=== PATIENT | male | born 1985 | race Caucasian/White ===

== ENCOUNTER 2016-10-03 15:33 | Inpatient (IN) ==
[2016-10-03 15:59] LABS: Bilirubin,Urine Negative (Negative); Blood,Urine Small (Negative); Clarity,Urine Clear (Clear); Color,Urine Yellow (Yellow); Glucose,Urine (UA) Normal (Normal); Ketones,Urine Trace mg/dL (Negative); Leukocyte Esterase,Urine Negative (Negative); Nitrite,Urine Negative (Negative); Protein,Urine Negative (Neg-Trace); Specific Gravity,Urine >= 1.030 (1.010-1.025)
[2016-10-03 16:04] LABS: Basophils # 0.1 K/mcL (0.0-0.2); Basophils % 1.1 %; Eosinophils # 0.2 K/mcL (0.0-0.6); Eosinophils % 3.9 %; Hemoglobin 14.1 g/dL (12.9-16.9); Immature Granulocytes % 0.6 % (0-4); Lymphocytes # 1.6 K/mcL (0.6-4.6); Lymphocytes % 28.7 %; Mean Corpuscular HGB Conc 33.6 g/dL (31.6-35.5); Mean Corpuscular Hemoglobin 29.8 pg (28.0-33.3); Mean Corpuscular Volume 88.8 fL (83.0-100.0); Mean Platelet Volume 9.5 fL (9.4-12.4); Monocytes # 0.4 K/mcL (0.0-1.3); Monocytes % 6.8 %; Neutrophils # 3.2 K/mcL (1.6-8.9); Platelet Count 345 K/mcL (140-400); Red Blood Count 4.73 M/mcL (4.19-5.50); Red Cell Distribution Width 12.9 % (11.5-14.5); Segmented Neutrophils % 58.9 %
[2016-10-03 16:07] LABS: Amphetamine Screen,Urine Negative ng/mL (Cutoff=1000); Barbiturate Screen,Urine Negative ng/mL (Cutoff=200); Benzodiazepines Screen,Urine Positive ng/mL (Cutoff=200); Cannabinoid Screen,Urine Positive ng/mL (Cutoff = 50); Cocaine Screen,Urine Negative ng/mL (Cutoff= 300); Opiate Screen,Urine Negative ng/mL (Cutoff=300); Phencyclidine Screen,Urine Negative ng/mL (Cutoff=25)
[2016-10-03 16:08] LABS: Mucus,Urine Few (Few); RBC,Urine 0-3 per hpf (0-3); WBC,Urine 0-3 per hpf (0-3)
[2016-10-03 16:14] LABS: BUN/Creatinine Ratio 11 (6-26); Blood Urea Nitrogen 10 mg/dL (8-26); Calcium 8.9 mg/dL (8.6-10.8); Carbon Dioxide 26 mEq/L (19-29); Chloride 106 mEq/L (98-109); Glucose 107 mg/dL (70-99); Osmolality,Calculated 290 (280-300); Potassium 4.2 mEq/L (3.5-4.5); Sodium 140 mEq/L (136-145); eGFR For African Americans > 60 (> 60); eGFR For Non-African Americans > 60 (> 60)
--- NOTE | 2016-10-03 16:16 | Emergency Department Note ---
Disposition Clinical Impression: Suicidal ideation, Homicidal ideation Disposition: Admitted As Inpatient Condition: Good Time of Disposition: 18:53 General Adult HPI - General Chief complaint: ED Psychiatric Symptoms Stated complaint: SI Time Seen by Provider: 10/03/16 15:44 Source: patient Limitations: no limitations Nursing Notes Reviewed: Yes Vital Signs Reviewed: Yes - History of Present Illness HPI Narrative: Male patient complaining of suicidal ideation. As well as homicidal ideation. He states that he will get his drug dealer to shoot him by attempting to rodrick him. He also states he would like to kill some radha that he is not aware of his name. Does have a history of schizophrenia and bipolar. He was on medication for this but has not taken it for over 1 year. He does use methamphetamine. Pain Scale: 0 - Related Data Home Medications Medication Instructions Recorded Confirmed No Known Home Drugs 10/03/16 10/03/16 Allergies Allergy/AdvReac Type Severity Reaction Status Date / Time guaifenesin [From Robitussin] Allergy See Verified 10/03/16 15:40 Comments Review of Systems: Patient denies any fevers or chills. He denies any visual or auditory hallucinations. He does report suicidal and homicidal ideations. He denies any shortness of breath or chest pain. He does report a productive cough. He also reports pain to his right forearm and he thinks he broke a needle off in his right arm. He denies any nausea vomiting or diarrhea. He denies any abdominal pain. He denies any urinary symptoms. All systems ED: reviewed and negative except as stated. Past Medical History - Past Medical History Medical history: Reports: other - Social History Smoking Status: Current every day smoker Alcohol use: Reports: heavy, recent Drug use: Reports: opiates, marijuana, methamphetamine, IVDU Physical Exam - General Limitations: no limitations General appearance: alert, in no apparent distress - Head Head exam: atraumatic, normocephalic, normal inspection - Eye Eye exam: Present: normal appearance, PERRL, EOMI. Absent: scleral icterus - ENT ENT exam: normal exam, normal oropharynx, mucous membranes moist - Neck Neck exam: Present: normal inspection, full ROM, trachea midline. Absent: tenderness, meningismus, lymphadenopathy - Chest Chest inspection: Present: normal inspection, symmetric chest wall rise. Absent : tenderness, rash - Respiratory Respiratory exam: Present: normal lung sounds bilaterally. Absent: respiratory distress, wheezes - Cardiovascular Cardiovascular exam: Present: regular rate, normal rhythm, normal heart sounds - Abdominal Exam Abdominal exam: Present: soft, Non-Tender, normal bowel sounds. Absent: tenderness, distention, guarding, rebound, rigidity - Extremities Exam Extremities exam: Present: normal inspection, full ROM, tenderness (To palpation of medial right forearm. He states he thinks he broke off a needle in this arm. There is no erythema is not warm. There is a hard spot directly under the skin.), normal capillary refill. Absent: pedal edema - Back Exam Back exam: Present: normal inspection, full ROM. Absent: tenderness, CVA tenderness (R), CVA tenderness (L) - Neurological Exam Neurological exam: Present: alert, oriented X3 - Psychiatric Psychiatric exam: Present: normal affect, normal mood - Skin Skin exam: Present: warm, dry, intact, normal color. Absent: rash, cyanosis, diaphoresis, erythema Course Course Narrative: The patient presented to the emergency department with suicidal and homicidal ideations. He stated he does have a plan for suicide that he is going to assist drug dealers house and attempted to rodrick him in hopes that he shoots him. He also has homicidal attempts against a male that he does not know his name. He states he does have a history of schizophrenia as well as bipolar but has not been on any medication in over a year. He has been using methamphetamine within the past 4 days. He states that he thinks that he may have broken a needle off in his right forearm approximately 4 days ago. States he normally shoots up in his neck but he missed the vein so he started in his arm. He is also complaining of a cough with productive sputum of dark color. Lung sounds are clear heart sounds are normal abdomen is soft and nontender. There is an area that is slightly hardened over his right before meals however there is no erythema or warmth. We will get a chest x-ray as well as a x-ray of his right forearm and do basic lab workup. We will have the patient talked to 1A. He is currently pink slipped. - Reevaluation(s) Reevaluation #1: 1A is requesting admission. We placed the orders. Time: 18:52 Vital Signs Temperature 98.3 F 10/03/16 15:38 Pulse Rate 77 10/03/16 15:38 Respiratory Rate 18 10/03/16 15:38 Blood Pressure 123/76 10/03/16 15:38 O2 Sat by Pulse Oximetry 97 10/03/16 15:38 Temperature 98.4 F 10/03/16 18:39 Pulse Rate 66 10/03/16 18:34 Respiratory Rate 18 10/03/16 18:39 Blood Pressure 109/66 10/03/16 18:39 O2 Sat by Pulse Oximetry 97 10/03/16 18:34 Oxygen Delivery Oxygen Delivery Room Air Medical Decision Making - Medical Records Medical records reviewed: Yes I reviewed the patient's medical records. - Lab Data Lab results reviewed: Yes I reviewed the patient's lab results. Result diagrams: 10/03/16 15:54 10/03/16 15:54 Lab Results 10/03/16 10/03/16 10/03/16 Range/Units 15:48 15:48 15:54 WBC 5.4 (4.3-11.1) K/mcL RBC 4.73 (4.19-5.50) M/mcL Hgb 14.1 (12.9-16.9) g/dL Hct 42.0 (37.5-50.1) % MCV 88.8 (83.0-100.0) fL MCH 29.8 (28.0-33.3) pg MCHC 33.6 (31.6-35.5) g/dL RDW 12.9 (11.5-14.5) % Plt Count 345 (140-400) K/mcL MPV 9.5 (9.4-12.4) fL Immature Gran % 0.6 (0-4) % Seg Neutrophils % 58.9 % Lymphocytes % 28.7 % Monocytes % 6.8 % Eosinophils % 3.9 % Basophils % 1.1 % Neutrophils # 3.2 (1.6-8.9) K/mcL Lymphocytes # 1.6 (0.6-4.6) K/mcL Monocytes # 0.4 (0.0-1.3) K/mcL Eosinophils # 0.2 (0.0-0.6) K/mcL Basophils # 0.1 (0.0-0.2) K/mcL Sodium (136-145) mEq/L Potassium (3.5-4.5) mEq/L Chloride (98-109) mEq/L Carbon Dioxide (19-29) mEq/L BUN (8-26) mg/dL Creatinine (0.72-1.25) mg/dL Est GFR ( Amer) (> 60) Est GFR (Non-Af Amer) (> 60) BUN/Creatinine Ratio (6-26) Glucose (70-99) mg/dL Calculated Osmolality (280-300) Calcium (8.6-10.8) mg/dL Urine Color Yellow (Yellow) Urine Clarity Clear (Clear) Urine pH 6.0 (5.0-8.0) pH Units Ur Specific [place] >= 1.030 H (1.010-1.025) Urine Protein Negative (Neg-Trace) mg/dL Urine Glucose (UA) Normal (Normal) mg/dL Urine Ketones Trace H (Negative) mg/dL Urine Blood Small H (Negative) Urine Nitrite Negative (Negative) Urine Bilirubin Negative (Negative) Urine Urobilinogen 2.0 H (Normal) mg/dL Ur Leukocyte Esterase Negative (Negative) Urine Microscopic RBC 0-3 (0-3) per hpf Urine Microscopic WBC 0-3 (0-3) per hpf Urine Mucus Few (Few) Salicylates (15-30) mg/dL Urine Opiates Screen Negative (Ctpein=893) ng/mL Acetaminophen (10-30) mcg/mL Ur Barbiturates Screen Negative (Ocfkcc=469) ng/mL Ur Phencyclidine Scrn Negative (Cutoff=25) ng/mL Ur Amphetamines Screen Negative (Eqnkgm=5436) ng/mL U Benzodiazepines Scrn Positive H (Xzfsso=213) ng/mL Urine Cocaine Screen Negative (Cutoff= 300) ng/mL U Marijuana (THC) Screen Positive H (Cutoff = 50) ng/mL Ethyl Alcohol (0-10) mg/dL 10/03/16 Range/Units 15:54 WBC (4.3-11.1) K/mcL RBC (4.19-5.50) M/mcL Hgb (12.9-16.9) g/dL Hct (37.5-50.1) % MCV (83.0-100.0) fL MCH (28.0-33.3) pg MCHC (31.6-35.5) g/dL RDW (11.5-14.5) % Plt Count (140-400) K/mcL MPV (9.4-12.4) fL Immature Gran % (0-4) % Seg Neutrophils % % Lymphocytes % % Monocytes % % Eosinophils % % Basophils % % Neutrophils # (1.6-8.9) K/mcL Lymphocytes # (0.6-4.6) K/mcL Monocytes # (0.0-1.3) K/mcL Eosinophils # (0.0-0.6) K/mcL Basophils # (0.0-0.2) K/mcL Sodium 140 (136-145) mEq/L Potassium 4.2 (3.5-4.5) mEq/L Chloride 106 (98-109) mEq/L Carbon Dioxide 26 (19-29) mEq/L BUN 10 (8-26) mg/dL Creatinine 0.88 (0.72-1.25) mg/dL Est GFR ( Amer) > 60 (> 60) Est GFR (Non-Af Amer) > 60 (> 60) BUN/Creatinine Ratio 11 (6-26) Glucose 107 H (70-99) mg/dL Calculated Osmolality 290 (280-300) Calcium 8.9 (8.6-10.8) mg/dL Urine Color (Yellow) Urine Clarity (Clear) Urine pH (5.0-8.0) pH Units Ur Specific [place] (1.010-1.025) Urine Protein (Neg-Trace) mg/dL Urine Glucose (UA) (Normal) mg/dL Urine Ketones (Negative) mg/dL Urine Blood (Negative) Urine Nitrite (Negative) Urine Bilirubin (Negative) Urine Urobilinogen (Normal) mg/dL Ur Leukocyte Esterase (Negative) Urine Microscopic RBC (0-3) per hpf Urine Microscopic WBC (0-3) per hpf Urine Mucus (Few) Salicylates < 5.0 L (15-30) mg/dL Urine Opiates Screen (Izcwbf=910) ng/mL Acetaminophen < 1.0 L (10-30) mcg/mL Ur Barbiturates Screen (Hsaddb=479) ng/mL Ur Phencyclidine Scrn (Cutoff=25) ng/mL Ur Amphetamines Screen (Nbtaal=0909) ng/mL U Benzodiazepines Scrn (Pfywzx=665) ng/mL Urine Cocaine Screen (Cutoff= 300) ng/mL U Marijuana (THC) Screen (Cutoff = 50) ng/mL Ethyl Alcohol < 10 (0-10) mg/dL - Radiology Data Radiology results reviewed: Yes I reviewed the patient's radiology results. Chest X-Ray 10/03/16 16:21 IMPRESSION: No acute cardiopulmonary abnormality. D/ / Alfredo Tiwari MD / Alfredo Tiwari MD Interpreting Provider: Alfredo Tiwari MD Forearm X-Ray 10/03/16 16:21 IMPRESSION: No acute osseous abnormality. No radiopaque foreign body. D/ / Rl Michel MD / Rl Michel MD Interpreting Provider: Rl Michel MD Attestation Statement - Attestation Attestation: I, Popeye Goyal, examined this patient and my medical decision-making was reviewed with the IT RECRUITER/PA/Advanced Practice Nurse/Resident Physician. I agree with the documented findings, disposition and treatment plan as described except to the extent set forth below. 31-year-old male present in the emergency department for suicidal ideation. Patient states his plan to hurt himself was to steal from his drug dealer in order to be shot. Patient has a history of bipolar disorder and schizophrenia of which he is not taking his medications. Patient will be medically cleared and evaluated by behavioral health. Patient will likely be admitted for further psychiatric evaluation.
[2016-10-03 16:50] LABS: Acetaminophen < 1.0 mcg/mL (10-30); Ethanol < 10 mg/dL (0-10); Salicylate < 5.0 mg/dL (15-30)
[2016-10-03] MEDS ORDERED: *HR* LORazepam 1 MG TABLET PO PRN (18:58)
[2016-10-03] MEDS ORDERED: Haloperidol Lactate 5 MG/ML VIAL IM PRN (18:58)
[2016-10-03] MEDS ORDERED: Ibuprofen 400 MG TABLET PO PRN (18:58)
[2016-10-03] MEDS ORDERED: hydrOXYzine pamoate 25 MG CAPSULE PO PRN (18:58)
[2016-10-03] MEDS ORDERED: Mag Hydrox/Al Hydrox/Simeth 30 ML UDC PO PRN (18:58)
[2016-10-03] MEDS ORDERED: *HR* LORazepam 2 MG/ML VIAL IM PRN (18:58)
[2016-10-03] MEDS ORDERED: Acetaminophen 325 MG TABLET PO PRN (18:58)
[2016-10-03] MEDS ORDERED: MOM Conc 10 ML UD.LIQ PO PRN (18:58)
[2016-10-03] MEDS ORDERED: traZODone 50 MG TABLET PO PRN (18:58)
--- NOTE | 2016-10-04 10:51 | Psychiatry History & Physical ---
Date of Encounter: 10/04/16 Time of Encounter: 10:30 History of Present Illness Patient Stated Chief Complaint: Suicidal and homicidal Medicare Admission Attestation: For traditional Medicare patients the provided hospital inpatient services are reasonable and necessary and in the case of services not specified as inpatient -only under 42 CFR 419.22 (n), that they are appropriately provided as inpatient services in accordance 42 CFR 412.3. For Critical Access Hospital the patient may reasonably be expected to be discharged or transferred to a hospital within 96 hours after admission to the Critical Access Hospital. Admitted From: Emergency Dept History of Present Illness: Mr. Zamudio is a 31 year old male admitted to the emergency department for suicidal or homicidal ideation. Patient reported that he has been treated in the past for bipolar disorder with medication and he was doing well on this medication. He started using drugs about a year ago and did not take any medication or follow any appointments, is using meth, heroin, THC and alcohol. Patient told me that she is scheduled to start drug rehabilitation program on Friday and . She did not feel safe and came to the hospital to get started on his medication. Nursing staff would be contacting his pharmacy to verify his medication prescribed in the past. Patient had previous psychiatric hospitalization at [facility] and [facility]. UDS was positive for THC and benzodiazepine. 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 Past Med Surg Social Fam HX - Past Medical History Medical history: other - Past Psychiatric History Psychiatric history: Reports: bipolar, depression, previous psychiatric hospitalization - Social History Smoking Status: Current every day smoker Smokeless Tobacco Status: Yes Alcohol use: heavy, recent Drug use: opiates, marijuana, methamphetamine, IVDU Medications & Allergies No Known Home Drugs 10/03/16 [History] Allergies guaifenesin [From Robitussin] Allergy (Verified 10/03/16 15:40) See Comments Review of Systems Psychiatric: Reports: suicidal ideation, homicidal ideation Mental Status Exam Patient orientation: Yes Person, Yes Time, Yes Place Level of alertness: Alert Patient appearance: Appropriate, Unkempt, Average Behavior: calm, cooperative, anxious Psychomotor activity: Normal Eye contact: Maintains Eye Contact Mood description: Anxious, Labile, Irritable Affect description: congruent with mood, labile, dysphoric, anxious Speech pattern: Normal rate, Normal rhythm, Normal tone Speech volume: Normal Thought process: Linear, Goal Oriented Thought content: No Suicidal ideation, No Homicidal ideation, No Overt delusions Perceptual disturbances: No Auditory hallucinations, No Visual hallucinations Attention span: Capable of Focused Attention Memory description: Grossly Intact Patient reliability: Questionable Historian Intelligence estimate: Average Judgment: Limited Insight: Partial Results - Vital Signs Vital signs: Temp Pulse Resp BP Pulse Ox 97.6 F 52 16 102/66 97 10/04/16 09:00 10/04/16 09:00 10/04/16 09:00 10/04/16 09:00 10/03/16 18:34 - Labs Labs: Laboratory Last Values WBC 5.4 K/mcL (4.3-11.1) 10/03/16 15:54 RBC 4.73 M/mcL (4.19-5.50) 10/03/16 15:54 Hgb 14.1 g/dL (12.9-16.9) 10/03/16 15:54 Hct 42.0 % (37.5-50.1) 10/03/16 15:54 MCV 88.8 fL (83.0-100.0) 10/03/16 15:54 MCH 29.8 pg (28.0-33.3) 10/03/16 15:54 MCHC 33.6 g/dL (31.6-35.5) 10/03/16 15:54 RDW 12.9 % (11.5-14.5) 10/03/16 15:54 Plt Count 345 K/mcL (140-400) 10/03/16 15:54 MPV 9.5 fL (9.4-12.4) 10/03/16 15:54 Immature Gran % 0.6 % (0-4) 10/03/16 15:54 Seg Neutrophils % 58.9 % 10/03/16 15:54 Lymphocytes % 28.7 % 10/03/16 15:54 Monocytes % 6.8 % 10/03/16 15:54 Eosinophils % 3.9 % 10/03/16 15:54 Basophils % 1.1 % 10/03/16 15:54 Neutrophils # 3.2 K/mcL (1.6-8.9) 10/03/16 15:54 Lymphocytes # 1.6 K/mcL (0.6-4.6) 10/03/16 15:54 Monocytes # 0.4 K/mcL (0.0-1.3) 10/03/16 15:54 Eosinophils # 0.2 K/mcL (0.0-0.6) 10/03/16 15:54 Basophils # 0.1 K/mcL (0.0-0.2) 10/03/16 15:54 Sodium 140 mEq/L (136-145) 10/03/16 15:54 Potassium 4.2 mEq/L (3.5-4.5) 10/03/16 15:54 Chloride 106 mEq/L (98-109) 10/03/16 15:54 Carbon Dioxide 26 mEq/L (19-29) 10/03/16 15:54 BUN 10 mg/dL (8-26) 10/03/16 15:54 Creatinine 0.88 mg/dL (0.72-1.25) 10/03/16 15:54 Est GFR ( Amer) > 60 (> 60) 10/03/16 15:54 Est GFR (Non-Af Amer) > 60 (> 60) 10/03/16 15:54 BUN/Creatinine Ratio 11 (6-26) 10/03/16 15:54 Glucose 107 mg/dL (70-99) H 10/03/16 15:54 Calculated Osmolality 290 (280-300) 10/03/16 15:54 Calcium 8.9 mg/dL (8.6-10.8) 10/03/16 15:54 Urine Color Yellow (Yellow) 10/03/16 15:48 Urine Clarity Clear (Clear) 10/03/16 15:48 Urine pH 6.0 pH Units (5.0-8.0) 10/03/16 15:48 Ur Specific [place] >= 1.030 (1.010-1.025) H 10/03/16 15:48 Urine Protein Negative mg/dL (Neg-Trace) 10/03/16 15:48 Urine Glucose (UA) Normal mg/dL (Normal) 10/03/16 15:48 Urine Ketones Trace mg/dL (Negative) H 10/03/16 15:48 Urine Blood Small (Negative) H 10/03/16 15:48 Urine Nitrite Negative (Negative) 10/03/16 15:48 Urine Bilirubin Negative (Negative) 10/03/16 15:48 Urine Urobilinogen 2.0 mg/dL (Normal) H 10/03/16 15:48 Ur Leukocyte Esterase Negative (Negative) 10/03/16 15:48 Urine Microscopic RBC 0-3 per hpf (0-3) 10/03/16 15:48 Urine Microscopic WBC 0-3 per hpf (0-3) 10/03/16 15:48 Urine Mucus Few (Few) 10/03/16 15:48 Salicylates < 5.0 mg/dL (15-30) L 10/03/16 15:54 Urine Opiates Screen Negative ng/mL (Pzjiih=249) 10/03/16 15:48 Acetaminophen < 1.0 mcg/mL (10-30) L 10/03/16 15:54 Ur Barbiturates Screen Negative ng/mL (Cnftun=133) 10/03/16 15:48 Ur Phencyclidine Scrn Negative ng/mL (Cutoff=25) 10/03/16 15:48 Ur Amphetamines Screen Negative ng/mL (Lcvabg=6738) 10/03/16 15:48 U Benzodiazepines Scrn Positive ng/mL (Qrfrer=874) H 10/03/16 15:48 Urine Cocaine Screen Negative ng/mL (Cutoff= 300) 10/03/16 15:48 U Marijuana (THC) Screen Positive ng/mL (Cutoff = 50) H 10/03/16 15:48 Ethyl Alcohol < 10 mg/dL (0-10) 10/03/16 15:54 Assessment and Plan (1) Bipolar disorder, unspecified Current visit: Yes Status: Acute Plan: Admit inpatient for safety and stabilization, Close observation, Suicide Precautions per unit protocol, Encourage participation in unit milieu, Group Therapy, Monitor sleep, Monitor appetite Additional Plan: Treatment record. Requested and patient will be started on medication and monitor for any withdrawal symptoms Risks, benefits, side effects, alternatives discussed w/pt: Yes Patient agreeable to treatment: Yes Estimated Length of Stay (Days): 3 Qualifiers: Active/Remission status: currently active Current bipolar episode type: mixed Current episode severity: severe Psychotic features: with psychotic features Qualified Code(s): F31.64 - Bipolar disorder, current episode mixed, severe, with psychotic features (2) Polysubstance dependence Current visit: Yes Status: Acute Plan: Admit inpatient for safety and stabilization, Close observation, Suicide Precautions per unit protocol, Encourage participation in unit milieu, Group Therapy, Monitor sleep, Monitor appetite Risks, benefits, side effects, alternatives discussed w/pt: Yes Patient agreeable to treatment: Yes (Patient was scheduled to start the rehabilitation program)
[2016-10-04] MEDS: Divalproex (24 HR) 500 MG TABLET PO SCH ×2 (12:58→20:53)
[2016-10-04 16:39] LABS: Hemoglobin A1C 5.1 %
--- NOTE | 2016-10-05 12:54 | Psychiatry Progress Note ---
Date of Encounter: 10/05/16 Time of Encounter: 12:30 Subjective Interval history: Alfredo is seen today for follow-up after admission for suicidal ideation and substance abuse. Previous notes and staff notes reviewed. Patient reports that since admission to the hospital he has felt some relief because he knows that he will be going to a rehabilitation program. Patient has insight into the fact that the drugs he was using have affected his mental health significantly. He states that he was scared by the thoughts he was having when he was using meth. He also reports that he was so high at time he was unsure if he had accidentally left the needle in his forearm. I did review the x-ray with the patient and assured him that he did not appear there was a foreign body in his arm. Patient was happy that he did not have to worry about this. He denies suicidal ideations. He does have some depression and irritability but physically feeling much better. He does go very positive about the medications and thinks that they are working for him at least a little bit. Review of Systems Constitutional: Denies: fever, chills, weakness, weight change Eyes: Denies: eye pain, vision change Ears, Nose, Throat: Denies: ear pain, throat pain, dental pain, hearing loss, congestion Cardiovascular: Denies: chest pain, palpitations, dyspnea on exertion Respiratory: Denies: cough, dyspnea, wheezes Gastrointestinal: Reports: nausea Musculoskeletal: Denies: joint swelling, joint pain Neurological: Denies: headache, weakness, numbness, memory loss Psychiatric: Reports: anxiety, abnormal sleep pattern, difficulty concentrating , irritability. Denies: suicidal ideation, homicidal ideation Objective: Exam Patient orientation: Yes Person, Yes Time, Yes Place Level of alertness: Alert Patient appearance: Appropriate Behavior: cooperative, nervous Psychomotor activity: Normal Eye contact: Maintains Eye Contact Mood description: Anxious Affect description: congruent with mood Speech pattern: Normal rate, Normal rhythm, Normal tone Speech volume: Normal Thought process: Intact, Logical Thought content: No Suicidal ideation, No Homicidal ideation Perceptual disturbances: No Auditory hallucinations, No Visual hallucinations Insight: Partial Results - Vital Signs Vital Signs: Temp Pulse Resp BP Pulse Ox 97.4 F L 55 16 123/77 97 10/05/16 09:00 10/05/16 09:00 10/05/16 09:00 10/05/16 09:00 10/03/16 18:34 Assessment and Plan (1) Bipolar disorder, unspecified Current visit: Yes Status: Acute Plan: Continue hospitalization, Close observation, Suicide Precautions per unit protocol, Encourage participation in unit milieu, Group Therapy, Monitor sleep, Monitor appetite Additional Plan: Patient has history of mental health issues and has not been taking medications. Denies side effects of current meds. Continue to monitor for increasing dosages. Encourage group attendance. Risks, benefits, side effects, alternatives discussed w/pt: Yes Patient agreeable to treatment: Yes Qualifiers: Active/Remission status: currently active Current bipolar episode type: mixed Current episode severity: severe Psychotic features: with psychotic features Qualified Code(s): F31.64 - Bipolar disorder, current episode mixed, severe, with psychotic features (2) Polysubstance dependence Current visit: Yes Status: Acute Plan: Continue hospitalization, Close observation, Suicide Precautions per unit protocol, Encourage participation in unit milieu, Group Therapy, Monitor sleep, Monitor appetite Additional Plan: Patient will go to [facility] on Friday for rehabilitation. We will monitor him until this time and continue to encourage abstinence from drugs and alcohol. Risks, benefits, side effects, alternatives discussed w/pt: Yes Patient agreeable to treatment: Yes (Patient was scheduled to start the rehabilitation program) Consult Discharge Plan - Plan Referrals: [facility] [Outside] (You are going into respite at [facility] on discharge from the hospital for residential substance abuse treatment . While there, clinic staff will open a case for you to become a client, and you will be seen daily by the clinic counselors, and you will also see Dr. Mera, psychiatrist.)
[2016-10-05] MEDS: Divalproex (24 HR) 500 MG TABLET PO SCH (20:56)
--- NOTE | 2016-10-06 13:08 | Psychiatry Progress Note ---
Date of Encounter: 10/06/16 Time of Encounter: 10:45 Subjective Interval history: Alfredo is seen today for follow-up and reports that his mood is improving. He feels hopeful about going to treatment tomorrow. He would like to stay off drugs. He is coming up with a plan on where he will go once he leaves his treatment. He denies SI or HI. He is sleeping well. Review of Systems Psychiatric: Reports: anxiety, difficulty concentrating. Denies: abnormal sleep pattern, suicidal ideation, homicidal ideation Objective: Exam Patient orientation: Yes Person, Yes Time, Yes Place Level of alertness: Alert Behavior: calm, cooperative Psychomotor activity: Normal Eye contact: Maintains Eye Contact Mood description: Euthymic/stable, Anxious Affect description: congruent with mood Speech pattern: Normal rate, Normal rhythm, Normal tone Speech volume: Normal Thought process: Intact Thought content: No Suicidal ideation, No Homicidal ideation Perceptual disturbances: No Auditory hallucinations, No Visual hallucinations Judgment: Fair Insight: Partial Results - Vital Signs Vital Signs: Temp Pulse Resp BP Pulse Ox 97.6 F 67 18 105/56 97 10/06/16 08:46 10/06/16 08:46 10/06/16 08:46 10/06/16 08:46 10/03/16 18:34 Assessment and Plan (1) Bipolar disorder, unspecified Current visit: Yes Status: Acute Plan: Continue hospitalization, Close observation, Suicide Precautions per unit protocol, Encourage participation in unit milieu, Group Therapy, Monitor sleep, Monitor appetite Additional Plan: Continue current medications. Patient feels his mood is stabilizing. Plan to DC tomorrow. Risks, benefits, side effects, alternatives discussed w/pt: Yes Patient agreeable to treatment: Yes Qualifiers: Active/Remission status: currently active Current bipolar episode type: mixed Current episode severity: severe Psychotic features: with psychotic features Qualified Code(s): F31.64 - Bipolar disorder, current episode mixed, severe, with psychotic features (2) Polysubstance dependence Current visit: Yes Status: Acute Plan: Continue hospitalization, Close observation, Suicide Precautions per unit protocol, Encourage participation in unit milieu, Group Therapy, Monitor sleep, Monitor appetite Additional Plan: Patient will be attending rehabilitation tomorrow. Risks, benefits, side effects, alternatives discussed w/pt: Yes Patient agreeable to treatment: Yes (Patient was scheduled to start the rehabilitation program) Consult Discharge Plan - Plan Referrals: [facility] [Outside] (You are going into respite at [facility] on discharge from the hospital for residential substance abuse treatment . While there, clinic staff will open a case for you to become a client, and you will be seen daily by the clinic counselors, and you will also see Dr. Mera, psychiatrist.)
[2016-10-06] MEDS: Divalproex (24 HR) 500 MG TABLET PO SCH (20:47)
--- NOTE | 2016-10-07 10:11 | Discharge Summary ---
Date of Encounter: 10/07/16 Time of Encounter: 10:09 Diagnosis - Discharge Diagnosis (1) Bipolar disorder, unspecified Status: Acute Qualifiers: Active/Remission status: currently active Current bipolar episode type: mixed Current episode severity: severe Psychotic features: with psychotic features Qualified Code(s): F31.64 - Bipolar disorder, current episode mixed, severe, with psychotic features (2) Polysubstance dependence Status: Acute Medications - Discharge Medications Prescriptions: Divalproex (24 HR) [Depakote ER (24 HR)] 500 mg PO HS #30 tab.er.24h Sertraline [Zoloft] 50 mg PO DAILY #30 tablet Divalproex (24 HR) [Depakote ER (24 HR)] 500 mg PO HS #30 tab.er.24h 10/07/16 [ Rx] Sertraline [Zoloft] 50 mg PO DAILY #30 tablet 10/07/16 [Rx] Allergies guaifenesin [From Robitussin] Allergy (Verified 10/03/16 15:40) See Comments Results Procedures and tests throughout hospitalization: Completed Lab Orders Category Date Time Status Hgb A1C Routine Lab 10/04/16 15:10 Completed Provider Date of admission: 10/03/16 18:26 Primary care physician: PCP NO Discharging clinician: Praful Galvez Assessment and Plan - Patient/Caregiver Discharge Instructions Activity: resume usual activities as tolerated Diet: regular diet - Follow up Plan Follow up with: [facility] [Outside] (You are going into respite at [facility] on discharge from the hospital for residential substance abuse treatment . While there, clinic staff will open a case for you to become a client, and you will be seen daily by the clinic counselors, and you will also see Dr. Mera, psychiatrist.) Functional capacity at discharge: independent ambulation Overall status at discharge: Stable Disposition: Home, Self-Care Hospital Course Hospital course: Mr. Zamudio is a 31 year old male admitted for suicidal ideation. For details of admission please see H&P On the unit patient was started on Zoloft and Depakote, he tolerated the medication and reported improved sleep and mood, less anxiety . He participated in activities, he denied any suicidal ideation and he was looking forward to be discharged to rehabilitation. On discharge he was medically stable, nonsuicidal and doing well on his medication and motivated for drug rehabilitation. His discharge plans were completed by social work. - Time Spent with Patient Total time spent providing and/or coordinating discharge services: Less than 30 minutes Quality - Multiple Antipsychotics Patient discharged on 2 or more antipsychotic medications: No Procedures - Procedures Procedures: Medication Management, Crisis Stabilization, Supportive Therapy, Group Therapy, Psychoeducational Therapy Mental Status Exam - Mental Status Exam Patient orientation: Yes Person, Yes Time, Yes Place Level of alertness: Alert Patient appearance: Appropriate, Well Groomed Behavior: calm, cooperative Psychomotor activity: Normal Eye contact: Maintains Eye Contact Mood description: Euthymic/stable Affect description: congruent with mood, full range Speech pattern: Normal rate, Normal rhythm, Normal tone Speech Volume: Normal Thought process: Linear, Goal Oriented Thought Content: No Suicidal ideation, No Homicidal ideation, No Overt delusions Perceptual Disturbances: No Auditory hallucinations, No Visual hallucinations Judgment: Limited Insight: Partial
[2016-10-07 10:48] VITALS: BP 124/80
== END 2016-10-07 12:45 | disposition home or self-care (01) | DRG 753 ==
LOC: EMEROO 15:33 → 1ANU 18:26
PROVIDERS: ADMIT Psychiatry & Neurology Psychiatry; ATTEND Psychiatry & Neurology Psychiatry

== ENCOUNTER 2017-02-11 12:00 | Inpatient (IN) ==
[2017-02-11] MEDS ORDERED: 0.9 % Sodium Chloride 1,000 ML IVC ONE ×2 (12:29→12:50)
--- NOTE | 2017-02-11 13:03 | Emergency Department Note ---
Disposition Clinical Impression: Elevated CK, Suicidal ideation, Homicidal ideation Disposition: Admitted As Inpatient Condition: Fair Time of Disposition: 14:22 Psych HPI - General Chief Complaint: ED Psychiatric Symptoms Stated Complaint: HI/lower back pain Time Seen by Provider: 02/11/17 12:15 Source: patient Mode of arrival: ambulatory Nursing Notes Reviewed: Yes Vital Signs Reviewed: Yes - History of Present Illness HPI Narrative: 31-year-old male that presents complaining of suicidal and homicidal ideations. Patient was just discharged from the emergency department, he now states that he is having worsening SI and HI, and hallucinating. Patient states that earlier he had been brought to the emergency department and felt that even the by multiple snakes, patient describes seen [id number] snakes on his legs, with multiple abrasions on his upper and lower extremities. Patient was sleeping in the [facility] night. He states he saw the snakes this morning, is also on Depakote and has bipolar states that he is poorly controlled and noncompliant on his medications. states that he has homicidal ideation and suicidal ideation, he states he has no specific plan for either of these, he also has been having multiple auditory and visual hallucinations over the PA, she states that he left against medical advise subsequently his CK level returned and was 8800, she was in a call back to come in for eval and admission for rhabdomyolysis, Patient denies chest pain abdominal pain, fever chills weight loss medication melena Pt complaint: suicidal ideation Onset (ago): hour(s) History of similar episodes: No Improves with: none Worsens with: none Associated symptoms: Reports: denies other symptoms. Denies: confusion, headache, shortness of breath Self harm or harm to others: admits thoughts of self harm, admits thoughts of harming others, denies having a plan - Related Data Home Medications Medication Instructions Recorded Confirmed No Known Home Drugs 02/11/17 02/11/17 Allergies Allergy/AdvReac Type Severity Reaction Status Date / Time guaifenesin [From Robitussin] Allergy See Verified 10/03/16 15:40 Comments All systems ED: reviewed and negative except as stated. Review of Systems: As Per HPI Constitutional: Denies: fever, chills Eyes: Denies: eye pain ENT ED: Denies: ear pain Cardiovascular: Denies: chest pain Respiratory: Denies: cough, dyspnea Gastrointestinal: Denies: abdominal pain Genitourinary: Denies: urgency Musculoskeletal: Denies: back pain Neurological: Reports: as per HPI. Denies: headache, weakness Psychiatric: Reports: as per HPI, suicidal thoughts, homicidal thoughts, auditory hallucinations, visual hallucinations. Denies: anxiety Endocrine: Denies: fatigue Past Medical History - Past Medical History Attestation: Yes The following information was validated with the patient. Source: patient Medical history: Reports: hepatitis Psychiatric history: Reports: bipolar, depression, previous psychiatric hospitalization - Social History Smoking Status: Current every day smoker Smokeless Tobacco Status: No Alcohol use: Reports: occasionally Drug use: Reports: methamphetamine Physical Exam Constitutional: Appears very fidgety and agitated, tachycardic Eyes: PERRLA, sclera anicteric ENT & Mouth: MMM Neck: normal inspection, neck is supple Resp: CTA bilaterally, no resp distress CV:sinus tachycardia, no m/g/r GI: normal inspection, soft, no guarding or rigidity Neuro: A&O3, CNII-XII grossly intact, FERREIRA Skin: Full abrasions and excoriations across the arms or legs - General Limitations: no limitations General appearance: alert, in no apparent distress Course Course Narrative: 31-year-old male returns with suicidal and homicidal ideation, a pink slip was placed because he is a threat for self harm has no definitive plan more concerning her that he is actively hallucinating, and he has a CK of 8000, he has no evidence of EKG changes, his K was within normal limits, I did order 2 L of fluid and admitted to the hospitalist as his lab work was already done Vital Signs Temperature 98.1 F 02/11/17 12:03 Pulse Rate 107 02/11/17 12:03 Respiratory Rate 18 02/11/17 12:03 Blood Pressure 119/75 02/11/17 12:03 O2 Sat by Pulse Oximetry 100 02/11/17 12:03 Temperature 98.1 F 02/11/17 12:03 Pulse Rate 95 02/11/17 13:40 Respiratory Rate 16 02/11/17 13:59 Blood Pressure 117/59 02/11/17 13:59 O2 Sat by Pulse Oximetry 99 02/11/17 13:40 Oxygen Delivery Oxygen Delivery Room Air Psych - Differential Diagnosis Likely: acute psychosis, bipolar disorder - Lab Data Lab results reviewed: Yes I reviewed the patient's lab results. - Radiology Data Radiology results reviewed: Yes I reviewed the patient's radiology results. - EKG Data EKG attestation: Yes I reviewed and interpreted this EKG. EKG shows normal: sinus rhythm Rate: normal (99 bpm NV 141 QRS 98 QTC [address] segment elevations or depressions, or line LVH.) Voltage: c/w LVH When compared to previous EKG there are: no significant changes Interpretation: nonspecific ST-T wave changes Psychiatric Medical Clearance - Medical Clearance Checklist Medical History: Suicidal ideation (Acute) Homicidal ideation (Acute) Bipolar disorder, unspecified (Acute) Polysubstance dependence (Acute) Acute renal insufficiency (Acute) Leukocytosis (Acute) Elevated liver enzymes (Acute) No Social History Section defined Current Vitals: Last Vital Signs Temp 98.1 F 02/11/17 12:03 Pulse 95 02/11/17 13:40 Resp 16 02/11/17 13:59 BP 117/59 02/11/17 13:59 Pulse Ox 99 02/11/17 13:40 Statement of Medical Clearance: I have evaluated the patient, reviewed diagnostic information, and certify that the patient's medical condition is sufficiently stable that transfer to the psychiatric unit does not pose a significant risk of deterioration. Attestation Statement - Attestation Attestation: I examined this patient and my medical decision-making was reviewed with the Resident Physician. I agree with the documented findings, disposition and treatment plan as described except to the extent set forth below. Patient presents to the emergency department with a chief complaint of wanting to hurt people. Patient was seen here earlier in the night. He left rehabilitation yesterday and was found behind a restaurant. He states that he was attacked by snakes. He states that he hallucinates and he thinks this is from prior meth. Patient had left earlier because he did not want to stay any longer. He is back now stating that he is afraid he is going to hurt people. Exam shows some anxious. Diffuse excoriations. Lungs clear. Agitated. Plan. Patient will be admitted to medicine. He did have a CK level that was done the return after she eloped from the department. It shows an elevated CK and some mild rhabdo. We will place him on IV fluids and admit him to medicine.
[2017-02-11] MEDS ORDERED: Acetaminophen 325 MG TABLET PO PRN (13:45)
[2017-02-11] MEDS ORDERED: Naloxone 0.4 MG/ML INJ IVP PRN ×2 (13:45→14:43)
--- NOTE | 2017-02-11 14:07 | Internal Med History&Physical ---
<Robert Davis J - Last Filed: 02/11/17 14:24> Date of Encounter: 02/11/17 Time of Encounter: 13:52 Assessment and Plan (1) Rhabdomyolysis Current visit: Yes Status: Acute Rhabdomyolysis S/P follow down an embankment last night. He is reporting bilateral CVA tenderness. No obvious bruising or trauma noted. Elevated creatine kinase 8150, acute kidney injury with a creatinine of 1.28. He was given a 2 L fluid bolus in the emergency department 0.9% normal saline at 150 mL per hour Stat BMP and CK BMP and CBC in the morning Avoid all nephrotoxic agents Monitor intake and output Qualifiers: Qualified Code(s): M62.82 - Rhabdomyolysis (2) Acute renal insufficiency Current visit: Yes Status: Acute The patient has acute renal insufficiency in the setting of rhabdomyolysis. Baseline creatinine 0.8 today's creatinine 1.28. The patient reports that he fell [place] by the river [place]. See assessment and plan above (3) Suicidal ideation Current visit: Yes Status: Resolved Denies having any suicidal ideation as of this time. Admits that he had suicidal ideation this morning but has since subsided. He denies any plan or intent to harm himself. Psychiatry consulted and the patient has been placed on a psychiatric hold. Psychiatry to resume bipolar medications. Once stable the patient will transfer to for further monitoring (4) Homicidal ideation Current visit: Yes Status: Acute Continues to have homicidal ideations, however, he denies any specific target. See assessment and plan above (5) Bipolar disorder, unspecified Current visit: Yes Status: Acute Long-standing history of bipolar depression. The patient reports he has not taken his medications in quite some time however he does not know exactly how long. He denies any recent visits to psychiatry or primary care practitioner. Due to new suicidal/homicidal ideations and hallucinations psychiatry has been consulted. Psychiatry to reestablish medication therapy Qualifiers: Active/Remission status: currently active Current bipolar episode type: mixed Current episode severity: severe Psychotic features: with psychotic features Qualified Code(s): F31.64 - Bipolar disorder, current episode mixed, severe, with psychotic features (6) Polysubstance dependence Current visit: Yes Status: Acute Long-standing history of polysubstance abuse. Patient is a long-time IV drug user however, he admits he has not used IV drugs since beginning vivitrol injections. He does admit to recent methamphetamine use. (7) Leukocytosis Current visit: Yes Status: Acute no obvious source of infection. It is my impression that the leukocytosis was the result of new JOELLEN S/P fall last night resulting in rhabdomyolysis Qualifiers: Leukocytosis type: unspecified Qualified Code(s): D72.829 - Elevated white blood cell count, unspecified (8) Transaminitis Current visit: Yes Status: Acute AST 111, patient has long-standing history of chronic hepatitis B and C. ALT, total bilirubin, conjugated bilirubin and unconjugated bilirubin are unremarkable. Internal Medicine - H&P: HPI Chief complaint: JOELLEN, transaminitis, suicidal ideation, homicidal ideation Admitted From: Home Plans for Post Hospital Care: Home History of present illness: Mr. Zamudio is a 31 year old male with a PMH of bipolar depression requiring previous psychiatric admissions, chronic hepatitis B and C, and polysubstance abuse including long-term IV drug use. He presents to [facility] today with SI, HI and hallucinations which began yesterday. The patient reports that yesterday and today he was using amphetamines, he also admits that he has not been taking his psych meds for an extended period of time. He reports that he has not seen his psychiatric doctor or PCP for quite some time but does not know exactly how long. The patient reports that last night he [place] along the [place] and he recently fell asleep and a lara on top of the amount of fire ants. He also reports loose indurations, he reports seeing [id number] snakes. Degenerative continued suicidal and homicidal ideations the patient is being placed on a psychiatric hold. The plan is to continue medical management and once stable send to 1 a. Past Med Surg Social Fam HX - Past Medical History Medical history: hepatitis Psychiatric history: bipolar, depression, previous psychiatric hospitalization - Social History Smoking Status: Current every day smoker Smokeless Tobacco Status: No Alcohol use: occasionally Drug use: methamphetamine - Family History Mother Hx Family Endocrine Disorder: Yes (Chronic kidney disease) Internal Medicine - H&P: Meds No Known Home Drugs 02/11/17 [History] 3 Allergy/AdvReac Type Severity Reaction Status Date / Time guaifenesin [From Robitussin] Allergy See Verified 10/03/16 15:40 Comments All Systems PM: A 10-system review of systems was performed and is negative for pertinent findings except as documented above in the HPI. - Constitutional Constitutional: night sweats (Chronic, he reports that he has night terrors and has been having night sweats and nightmares. However, he does have chronic hepatitis B and C), no chills, no fever(s) - EENT Eyes: no change in vision, no discharge, no pain, no photophobia Ears: no ear discharge, no ear pain, no tinnitus Nose, mouth and throat: no dysphagia, no nasal discharge, no neck pain, no sore throat - Cardiovascular Cardiovascular ROS IM: no chest pain, no diaphoresis, no dyspnea, no dyspnea on exertion, no lightheadedness, no palpitations, no syncope - Respiratory Respiratory: no cough, no dyspnea, no dyspnea on exertion, no wheezing, no excessive phlegm production Additional comments: The patient reports that it feels like his posterior lungs hurt; not exacerbated by breathing - Gastrointestinal Gastrointestinal: no abdominal pain, no diarrhea, no hematemesis, no hematochezia, no melena, no nausea, no vomiting - Genitourinary Genitourinary ROS male: flank pain, no difficulty urinating, no dysuria, no genital pain, no hematuria - Musculoskeletal Musculoskeletal ROS IM: back pain, no numbness, no tingling - Integumentary Integumentary IM: no rash, no unusual bruising - Neurological Neurological ROS: no confusion, no convulsions, no focal weakness, no numbness, no tingling, no tremor(s) - Psychiatric Psychiatric: abnormal sleep pattern, hallucinations, homicidal ideation, mood swings, suicidal ideation, no auditory hallucinations, no hopelessness, no irritability, no memory loss - Hematologic/Lymphatic Hematologic/Lymphatic: no easy bruising - Constitutional Vitals: Temp Pulse Resp BP Pulse Ox 98.1 F 95 14 119/75 99 02/11/17 12:03 02/11/17 13:40 02/11/17 13:40 02/11/17 12:03 02/11/17 13:40 General appearance: Present: cooperative, A&O X 3, no acute distress, answers questions appropriately - Head Head exam: Present: atraumatic, normocephalic - Eye Eye exam: Present: EOMI, PERRL, conjuntiva pink, sclera anicteric Pupils: Present: PERRL - Neck Neck exam general surgery: Present: supple, trachea midline. Absent: lymphadenopathy, tenderness, nuchal rigidity - Respiratory Respiratory exam: Present: CTAB. Absent: accessory muscle use, decreased breath sounds, prolonged expiratory phase, rales, rhonchi, wheezes - Cardiovascular Cardiovascular exam: Present: RRR, +S1, +S2. Absent: diastolic murmur, gallop, rubs, systolic murmur - GI/Abdominal GI/Abdominal exam: Present: normal bowel sounds, soft, no peritoneal signs. Absent: distended, firm, rebound, rigid, splenomegaly, tenderness - Extremities Exam Extremities exam: Present: normal capillary refill, normal inspection, warm, radial pulses palpable and symmetrical. Absent: calf tenderness, cyanotic, pedal edema - Neurological Exam Neurological exam: Present: CN II-XII intact, oriented X3, no focal deficits. Absent: pronater drift, facial droop, speech deficit - Skin Skin exam: Present: abrasion (Multiple healing abrasions noted bilateral upper extremities and bilateral lower extremities), dry, erythema (Pronounced erythema anterior-posterior trunk and bilateral upper extremities), intact - Expanded Skin Exam Type of lesion: Present: rash Distribution of rash: Present: abdomen, back, chest, neck, LUE, RUE Description of rash: Present: erythematous - VTE Reasons for not Prescribing Prophylaxis: Treatment not Indicated - Low risk for VTE <Luis M Tabor - Last Filed: 02/11/17 19:59> Date of Encounter: 02/11/17 Internal Medicine - H&P: HPI History of present illness: Mr. Zamudio is a 31 year old male All Systems PM: A 10-system review of systems was performed and is negative for pertinent findings except as documented above in the HPI. - Constitutional Vitals: Temp Pulse Resp BP Pulse Ox 98.5 F 102 22 118/83 100 02/11/17 14:52 02/11/17 14:52 02/11/17 14:52 02/11/17 14:52 02/11/17 14:52 Internal Med - H&P Results - Labs CBC & Chem 7: 02/11/17 14:38 Labs: BMP 02/11/17 14:38 Sodium 140 Potassium 4.0 Chloride 106 Carbon Dioxide 22 BUN 24 Creatinine 1.00 Glucose 72 Calcium 8.9 Cardiac Enzymes 02/11/17 Range/Units 14:38 Troponin I 0.13 H* (0-0.03) ng/mL - Impressions ITS Impressions Chest X-Ray 02/11/17 14:15 IMPRESSION: No acute process. D/ / Yvan Rebolledo MD / Yvan Rebolledo MD Interpreting Provider: Yvan Rebolledo MD - Attending Attestation I independently obtained history and examined this patient and my medical decision-making was reviewed with the nurse practitioner. I agree with the documented findings, disposition and treatment plan as described. My findings are summarized below: Patient is currently somnolent due to sedative medication. He was agitated earlier and was given Geodon. He cannot provide adequate history. Per records he was brought to the hospital and reported suicidal and homicidal ideation. Blood work revealed elevated creatinine and elevated CPK. He was admitted to the medical service for further care and clearance for psychiatric admission. On exam he is in no acute distress,, sedated. Heart is regular. Lungs are clear. Plan: IV fluids. Avoid nephrotoxins. Check creatinine. Consult psychiatry. Troponin is elevated however the patient has no significant risk factors, no history of CAD and has not been complaining of chest pain. We will trend troponin to rule out ACS. Elevation possibly secondary to rhabdomyolysis.
--- NOTE | 2017-02-11 14:45 | Event Note ---
Date of Encounter: 02/11/17 Time of Encounter: 14:45 Patient changed to inpatient status
[2017-02-11 15:04] LABS: BUN/Creatinine Ratio 24 (6-26); Blood Urea Nitrogen 24 mg/dL (8-26); Calcium 8.9 mg/dL (8.6-10.8); Carbon Dioxide 22 mEq/L (19-29); Chloride 106 mEq/L (98-109); Glucose 72 mg/dL (70-99); Osmolality,Calculated 293 (280-300); Sodium 140 mEq/L (136-145); eGFR For African Americans > 60 (> 60); eGFR For Non-African Americans > 60 (> 60)
[2017-02-11] MEDS ORDERED: *HR* LORazepam 2 MG/ML VIAL IVP ONE (15:43)
[2017-02-11] MEDS ORDERED: *HR* LORazepam 2 MG/ML VIAL IVP PRN (15:44)
[2017-02-11 16:06] LABS: INR 1.4; Prothrombin Time 15.6 Seconds (9.4-12.1)
[2017-02-11] MEDS: 0.9 % Sodium Chloride 1,000 ML IVC SCH (17:30)
[2017-02-11] MEDS: Ziprasidone injection 20 MG/ML VIAL IM PRN (17:31)
[2017-02-11 18:01] LABS: Creatine Kinase 22707 Units/L (30-200)
[2017-02-12] MEDS: 0.9 % Sodium Chloride 1,000 ML IVC SCH ×3 (02:21→10:48)
[2017-02-12 03:44] LABS: Basophils # 0.1 K/mcL (0.0-0.2); Basophils % 0.6 %; Eosinophils # 0.1 K/mcL (0.0-0.6); Eosinophils % 0.9 %; Hematocrit 38.3 % (37.5-50.1); Hemoglobin 13.3 g/dL (12.9-16.9); Immature Granulocytes % 0.3 % (0-4); Lymphocytes % 18.2 %; Mean Corpuscular HGB Conc 34.7 g/dL (31.6-35.5); Mean Corpuscular Hemoglobin 30.9 pg (28.0-33.3); Mean Corpuscular Volume 89.1 fL (83.0-100.0); Monocytes # 0.8 K/mcL (0.0-1.3); Neutrophils # 7.9 K/mcL (1.6-8.9); Platelet Count 259 K/mcL (140-400); Red Cell Distribution Width 13.7 % (11.5-14.5)
[2017-02-12 03:57] LABS: BUN/Creatinine Ratio 20 (6-26); Blood Urea Nitrogen 17 mg/dL (8-26); Calcium 8.8 mg/dL (8.6-10.8); Carbon Dioxide 24 mEq/L (19-29); Chloride 106 mEq/L (98-109); Glucose 73 mg/dL (70-99); Osmolality,Calculated 290 (280-300); Potassium 3.7 mEq/L (3.5-4.5); Sodium 140 mEq/L (136-145); eGFR For African Americans > 60 (> 60); eGFR For Non-African Americans > 60 (> 60)
[2017-02-12] MEDS: Ziprasidone injection 20 MG/ML VIAL IM PRN (03:59)
[2017-02-12 04:08] VITALS: BP 123/81
[2017-02-12] MEDS ORDERED: *HR* HYDROcodone/Acet 10/325 mg TABLET PO PRN ×2 (10:51→11:42)
--- NOTE | 2017-02-12 14:15 | Consult Note ---
Date of Encounter: 02/12/17 Time of Encounter: 13:45 Assessment & Recommendation (1) Bipolar disorder, unspecified Current visit: Yes Status: Acute Assessment & Recommendation: Patient has a history of bipolar disorder. Reports he has been off meds to some providers reports that this doctor that he has been taking his medications. Would hold off on restarting psychiatric medications until after patient is stable from a medical perspective. Patient was taking Depakote 500 mg by mouth daily at bedtime and Zoloft 50 mg by mouth daily. Would recommend patient restarting these at discharge. Encourage the patient to follow-up with his psychiatric providers as an outpatient. At this time patient is not hallucinating. He is denying suicidal or homicidal ideation, intent, or plan. He does not meet criteria for inpatient psychiatric hospitalization at this time. Consider leaving one to one sitter at bedside not for risk of self-harm but because patient is a flight risk and may not want to stay in the hospital to continue medical treatment. Please call with any questions. Qualifiers: Active/Remission status: currently active Current bipolar episode type: mixed Current episode severity: severe Psychotic features: with psychotic features Qualified Code(s): F31.64 - Bipolar disorder, current episode mixed, severe, with psychotic features (2) Polysubstance dependence Current visit: Yes Status: Acute History of Present Illness Patient: known to practice within the last 3 years Requesting Physician: Vernon Steven MD Reason for consult: SI/Drug use History of present illness: Mr. Zamudio is a 31 year old male with a history of bipolar disorder as well as substance abuse issues who presented to the hospital with hallucinations as well as suicidal or homicidal ideations. He was admitted to the medical floor and is currently being treated for rhabdomyolysis. Patient states that he got into an argument with his girlfriend and was apparently staying in the [place]. He relapsed on methamphetamines and then became depressed because he was using again. He did report suicidal ideation on admission. Since he has been hospitalized he states his mood has improved. He reports he has been taking his psychiatric medications but cannot remember what doses they are or how often he supposed to take them. He was on Depakote and Zoloft prior to discharge from in September 2016. Today he is calm and cooperative and denies grandiosity, decreased need for sleep, impulsivity. He does not appear to be responding to internal stimuli. He denies auditory or visual hallucinations. He is willing to continue to see his outpatient provider for psychiatric care. CC: Vernon Steven MD Past Med Surg Social Fam HX - Past Medical History Medical history: hepatitis - Past Psychiatric History Psychiatric history: Reports: previous psychiatric hospitalization, other ( Substance abuse) Past psychiatric history details: Patient has history of multiple psychiatric admissions status post drug use. He has a diagnosis of bipolar disorder. Family psychiatric history: No Family History of Suicide: None - Social History Smoking Status: Current every day smoker Smokeless Tobacco Status: No Alcohol use: occasionally Drug use: methamphetamine - Family History Mother Hx Family Endocrine Disorder: Yes (Chronic kidney disease) Medications & Allergies No Known Home Drugs 02/11/17 [History] 3 Allergy/AdvReac Type Severity Reaction Status Date / Time guaifenesin [From Robitussin] Allergy See Verified 10/03/16 15:40 Comments Review of Systems Constitutional: Denies: fever, chills, weakness, weight change Eyes: Denies: eye pain, vision change Ears, Nose, Throat: Denies: ear pain, throat pain, dental pain, hearing loss, congestion Cardiovascular: Denies: chest pain, palpitations, dyspnea on exertion Respiratory: Denies: cough, dyspnea, wheezes Gastrointestinal: Denies: abdominal pain, nausea, vomiting, diarrhea, constipation Genitourinary male: Denies: urgency, dysuria, frequency, genital lesions Genitourinary female: Denies: urgency, dysuria, frequency, abnormal menses, dyspareunia Musculoskeletal: Reports: back pain, myalgia Integumentary: Denies: rash, lesions, pruritus Neurological: Denies: headache, weakness, numbness, memory loss Psychiatric: Denies: depression, anxiety, abnormal sleep pattern, suicidal ideation, change in appetite, auditory hallucinations, visual hallucinations, anhedonia, change in libido, difficulty concentrating, hopelessness, irritability, mood swings, panic attacks Endocrine: Denies: fatigue, heat or cold intolerance Hematologic/Lymphatic: Denies: easy bruising, lymphadenopathy Allergic/Immunologic: Denies: urticaria, itchy eyes Mental Status Exam Patient orientation: Yes Person, Yes Time, Yes Place Level of alertness: Alert Patient appearance: Appropriate, Well Groomed Behavior: calm, cooperative Psychomotor activity: Normal Eye contact: Maintains Eye Contact Mood description: Euthymic/stable Affect description: congruent with mood, full range Speech pattern: Normal rate, Normal rhythm, Normal tone Speech volume: Normal Thought process: Linear, Goal Oriented Thought content: No Suicidal ideation, No Homicidal ideation, No Overt delusions Perceptual disturbances: No Auditory hallucinations, No Visual hallucinations Attention span: Capable of Focused Attention Memory description: Grossly Intact Patient reliability: Questionable Historian Intelligence estimate: Average Judgment: Limited Insight: Minimal Results - Vital Signs Vital signs: Temp Pulse Resp BP Pulse Ox 98.1 F 100 20 123/81 98 02/12/17 04:07 02/12/17 04:07 02/12/17 04:07 02/12/17 04:07 02/12/17 09:50 - Labs Labs: Laboratory Last Values WBC 10.8 K/mcL (4.3-11.1) 02/12/17 02:37 RBC 4.30 M/mcL (4.19-5.50) 02/12/17 02:37 Hgb 13.3 g/dL (12.9-16.9) 02/12/17 02:37 Hct 38.3 % (37.5-50.1) 02/12/17 02:37 MCV 89.1 fL (83.0-100.0) 02/12/17 02:37 MCH 30.9 pg (28.0-33.3) 02/12/17 02:37 MCHC 34.7 g/dL (31.6-35.5) 02/12/17 02:37 RDW 13.7 % (11.5-14.5) 02/12/17 02:37 Plt Count 259 K/mcL (140-400) 02/12/17 02:37 MPV 10.0 fL (9.4-12.4) 02/12/17 02:37 Immature Gran % 0.3 % (0-4) 02/12/17 02:37 Seg Neutrophils % 73.0 % 02/12/17 02:37 Lymphocytes % 18.2 % 02/12/17 02:37 Monocytes % 7.0 % 02/12/17 02:37 Eosinophils % 0.9 % 02/12/17 02:37 Basophils % 0.6 % 02/12/17 02:37 Neutrophils # 7.9 K/mcL (1.6-8.9) 02/12/17 02:37 Lymphocytes # 2.0 K/mcL (0.6-4.6) 02/12/17 02:37 Monocytes # 0.8 K/mcL (0.0-1.3) 02/12/17 02:37 Eosinophils # 0.1 K/mcL (0.0-0.6) 02/12/17 02:37 Basophils # 0.1 K/mcL (0.0-0.2) 02/12/17 02:37 PT 15.6 Seconds (9.4-12.1) H 02/11/17 15:46 INR 1.4 02/11/17 15:46 APTT 29.0 Seconds (26.0-36.0) 02/11/17 15:46 Sodium 140 mEq/L (136-145) 02/12/17 02:37 Potassium 3.7 mEq/L (3.5-4.5) 02/12/17 02:37 Chloride 106 mEq/L (98-109) 02/12/17 02:37 Carbon Dioxide 24 mEq/L (19-29) 02/12/17 02:37 BUN 17 mg/dL (8-26) 02/12/17 02:37 Creatinine 0.84 mg/dL (0.72-1.25) 02/12/17 02:37 Est GFR ( Amer) > 60 (> 60) 02/12/17 02:37 Est GFR (Non-Af Amer) > 60 (> 60) 02/12/17 02:37 BUN/Creatinine Ratio 20 (6-26) 02/12/17 02:37 Glucose 73 mg/dL (70-99) 02/12/17 02:37 Calculated Osmolality 290 (280-300) 02/12/17 02:37 Calcium 8.8 mg/dL (8.6-10.8) 02/12/17 02:37 Creatine Kinase 89746 Units/L (30-200) H 02/12/17 07:59 Troponin I 0.07 ng/mL (0-0.03) H* 02/12/17 02:37 - Impressions Impressions Chest X-Ray 02/11/17 14:15 IMPRESSION: No acute process. D/ / Yvan Rebolledo MD / Yvan Rebolledo MD Interpreting Provider: Yvan Rebolledo MD Consult Discharge Plan - Plan Referrals: NONE,PCP [Primary Care Provider] -
--- NOTE | 2017-02-12 16:31 | Internal Med Progress Note ---
Date of Encounter: 02/12/17 Time of Encounter: 10:50 - Assessment and plan (1) Rhabdomyolysis Status: Acute Assessment and plan: Following fall [place] [address] this morning. Continue IV hydration. Creatinine normal at this time. Moderate risk for complications. Troponin elevation due to muscle injury. Qualifiers: Rhabdomyolysis type: traumatic Encounter type: initial encounter Qualified Code(s): T79.6XXA - Traumatic ischemia of muscle, initial encounter (2) Bipolar disorder, unspecified Status: Acute Assessment and plan: Awaiting psychiatric evaluation. Qualifiers: Active/Remission status: currently active Current bipolar episode type: mixed Current episode severity: severe Psychotic features: with psychotic features Qualified Code(s): F31.64 - Bipolar disorder, current episode mixed, severe, with psychotic features (3) Suicidal ideation Status: Resolved (4) Homicidal ideation Status: Resolved (5) Polysubstance dependence Status: Acute Assessment and plan: Social work consult. - Subjective Interval history: Patient complaining of pain all over this morning especially over his bilateral costovertebral regions. He feels that his " kidneys are swollen". Denies any nausea or vomiting. No dysuria. Awaiting evaluation by psychiatry. - Constitutional Vitals: Temp Pulse Resp BP Pulse Ox 98.1 F 100 20 123/81 98 02/12/17 04:07 02/12/17 04:07 02/12/17 04:07 02/12/17 04:07 02/12/17 09:50 General appearance: Present: cooperative, A&O X 3, no acute distress, answers questions appropriately - Neck Neck exam general surgery: Present: supple, trachea midline. Absent: lymphadenopathy - Respiratory Respiratory exam: Present: CTAB. Absent: accessory muscle use, rales, rhonchi, wheezes - Cardiovascular Cardiovascular exam: Present: RRR, +S1, +S2. Absent: diastolic murmur, gallop, rubs, systolic murmur - GI/Abdominal GI/Abdominal exam: Present: normal bowel sounds, soft, no peritoneal signs. Absent: distended, tenderness - Extremities Exam Extremities exam: Present: warm, radial pulses palpable and symmetrical. Absent : calf tenderness, cyanotic, pedal edema - Back Exam Back exam: Present: CVA tenderness (L), CVA tenderness (R) Internal Medicine: Result - Labs CBC & Chem 7: 02/12/17 02:37 02/12/17 02:37 Labs: Short CBC 02/12/17 Range/Units 02:37 WBC 10.8 (4.3-11.1) K/mcL Hgb 13.3 (12.9-16.9) g/dL Hct 38.3 (37.5-50.1) % Plt Count 259 (140-400) K/mcL Neutrophils # 7.9 (1.6-8.9) K/mcL BMP 02/12/17 02:37 Sodium 140 Potassium 3.7 Chloride 106 Carbon Dioxide 24 BUN 17 Creatinine 0.84 Glucose 73 Calcium 8.8 Cardiac Enzymes 02/11/17 02/12/17 Range/Units 21:23 02:37 Troponin I 0.10 H* 0.07 H* (0-0.03) ng/mL - ABG Interpretation ABG results: PT/INR, D-dimer PT 15.6 Seconds (9.4-12.1) H 02/11/17 15:46 - VTE Reasons for not Prescribing Prophylaxis: Treatment not Indicated - Low risk for VTE Consult Discharge Plan - Plan Referrals: NONE,PCP [Primary Care Provider] -
== END 2017-02-12 16:00 | disposition home or self-care (01) | DRG 351 ==
LOC: EMEROO 12:00 → 2ANU 13:39
PROVIDERS: ADMIT Internal Medicine; ATTEND Internal Medicine